=== PATIENT | female | born 1995 | race African-American/Black ===

== ENCOUNTER 2017-07-11 22:12 | Emergency (ER) | payer SELFPAY ==
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
== END 2017-07-11 22:30 | disposition home or self-care (01) ==
LOC: ER 22:15
DX: Z04.1 Encounter for examination and observation following transport accident (principal); V49.9XXA Car occupant (driver) (passenger) injured in unspecified traffic accident, initial encounter; Y93.89 Activity, other specified; Y92.89 Other specified places as the place of occurrence of the external cause; Y99.8 Other external cause status